=== PATIENT | male | born 1975 | race Caucasian/White ===

== ENCOUNTER 2017-10-06 22:41 | Emergency (ER) | payer OTHER ==
--- NOTE | 2017-10-06 23:02 | EDPHY ---
H & P Stated Complaint: Flew from [place] 2 days ago. Pain/swellig in left calf. - Personal History Current Tetanus/Diphtheria Vaccine: Yes Current Tetanus Diphtheria and Acellular Pertussis (TDAP): Yes - Medical/Surgical History Hx Asthma: No Hx Chronic Respiratory Disease: No Hx Diabetes: No Hx Cardiac Disease: No Hx Renal Disease: No Hx Cirrhosis: No Hx Alcoholism: No Hx HIV/AIDS: No Hx Splenectomy or Spleen Trauma: No Other PMH: Denies - Social History Smoking Status: Never smoked Time Seen by Provider: 10/06/17 22:54 HPI/ROS: CHIEF COMPLAINT: Left calf pain and swelling HISTORY OF PRESENT ILLNESS: 41-year-old male generally healthy, no coagulopathic disorder history return from a flight from [place] 2 days ago. He noticed left calf pain, cramping sensation ever since returning. No discoloration. No trauma or fall. No paresthesia. No chest pain. No dyspnea. No headache. No syncope or near syncope. He also notes that this morning he woke with flu-like symptoms which have now resolved. He denies: Fever, chills, nausea, vomiting, rash, chest pain, sore throat, diarrhea REVIEW OF SYSTEMS: A ten point review of systems was performed and is negative with the exception of the items mentioned in the HPI PAST MEDICAL & SURGICAL HISTORY: No coagulopathic disorder SOCIAL HISTORY:Nonsmoker, PHYSICAL EXAM (Prior to examination, patient consented to physical exam, hands were washed and my usual and customary physical exam procedures followed) 1) GENERAL: Well-developed, well-nourished, alert and oriented. Appears to be in no acute distress. 2) HEAD: Normocephalic, atraumatic 3) HEENT: Pupils equal, round, reactive to light bilaterally. Sclera anicteric. Nasopharynx, oropharynx, clear, no lesions. No tonsillar enlargement or exudate 4) NECK: Full range of motion, no meningeal signs. 5) LUNGS: Clear auscultation bilaterally, no wheezes, no rhonchi, no retractions. 6) HEART: Regular rate and rhythm, no murmur, no heave, no gallop. 7) ABDOMEN: No guarding, no rebound, no focal tenderness, negative McBurney's,, 8) MUSCULOSKELETAL: No visible asymmetrical edema. No signs of cellulitis. No discoloration. Soft compartments. DP PT pulses present and brisk. Negative Homans no palpable cord. Brisk capillary refill. 9) BACK: No obvious trauma, no visual or palpable abnormality. 10) SKIN: No rash, no petechiae. 11) Psychiatric: Patient is oriented X 3, there is no agitation. DIFFERENTIAL DIAGNOSIS: In no particular include but limited to DVT, muscle strain, compartment syndrome, cellulitis (Daniela Barros) Constitutional: Initial Vital Signs Temperature (C) 37.0 C 10/06/17 22:45 Heart Rate 90 10/06/17 22:45 Respiratory Rate 16 10/06/17 22:45 Blood Pressure 132/84 H 10/06/17 22:45 O2 Sat (%) 94 10/06/17 22:45 O2 Delivery Mode Room Air Allergies/Adverse Reactions: amoxicillin [Amoxicillin] Allergy (Verified 09/06/12 09:11) Home Medications: Medication Instructions Recorded NK [No Known Home Meds] 10/06/17 Medical Decision Making ED Course/Re-evaluation: 11:02 p.m.: Will obtain ultrasonographic imaging and re-evaluate. Care of patient under supervision of secondary supervising physician Dr Arizmendi . ( Daniela Barros) 1225; ultrasound is unremarkable for DVT. No evidence of acute inflammation or DVT. Called to me by Dr. Hernández, I did go and update the patient. Patient resting comfortably no acute distress. Comfortable being discharged. Return precautions discussed with him he understands he has worsening pain swelling to return emergency room. (Anuj Arizmendi) Departure - Departure Disposition: Home, Routine, Self-Care Clinical Impression: Pain of left calf Condition: Good Instructions: Leg Cramps (ED), Muscle Cramp (ED) Additional Instructions: Return to the ER immediately if you experience discoloration, have worsening pain, numbness, tingling, or any other symptoms that concern you. If you received x-rays in the emergency department today, be advised, that ligamentous , tendon, muscular, and other non-bony injury cannot be fully ruled out. Try to keep your affected extremity elevated above the level of your chest, and keep cold packs on the affected area, for the next 48 hours. Referrals: Michael Patel MD [Primary Care Provider] - As per Instructions
[2017-10-07 00:37] VITALS: BP 121/81
== END 2017-10-07 00:37 | disposition home or self-care (01) ==
DX: M79.662 Pain in left lower leg (principal)